=== PATIENT | male | born 1970 ===

== ENCOUNTER 2022-12-27 08:15 | Inpatient (IN) | payer OTHER ==
[~2022-12-27] VITALS: Ht 172.7 cm; Wt 77.1 kg
[~2022-12-27 08:15] MED LIST: CATAFLAN PO; CIPROFLOXACIN750 MG PO; CLONAZEPAM1 MG PO; DOCUSATE SODIU100 MG PO; GABAPENTIN800 MG PO; METHYLPRED4 MG/DOSE- PO; PERCOCET 5/3251 TAB PO
[2022-12-27] MEDS ORDERED: ESTAZOLAM2 MG PO (09:39)
[2022-12-27] MEDS ORDERED: CYMBALTA30 MG PO (09:39)
[2022-12-31] MEDS ORDERED: PERCOCET 5-3251 EACH PO (12:50)
[2022-12-31] MEDS ORDERED: MEDROLPACK PO (12:51)
[2022-12-31] MEDS ORDERED: NEURONTIN800 MG PO (12:52)
[2022-12-31] MEDS ORDERED: AMOX-CLAV 875-1 EACH PO (12:52)
[2022-12-31] MEDS ORDERED: COLACE100 MG PO (12:53)
== END 2023-01-02 08:14 | disposition home health service (06) | DRG 455 ==
LOC: O/R 12-31 06:28 → SURH 12-31 08:15 → PED 12-31 15:39 → SURH 12-31 17:45 → PED 01-02 08:14
PROVIDERS: ADMIT Orthopaedic Surgery Orthopaedic Surgery of the Spine; ATTEND Orthopaedic Surgery Orthopaedic Surgery of the Spine
PROC: 0SG0071 Fusion of Lumbar Vertebral Joint with Autologous Tissue Substitute, Posterior Approach, Posterior Column, Open Approach (ICD-10-PCS; 2022-12-31)
PROC: 0ST20ZZ Resection of Lumbar Vertebral Disc, Open Approach (ICD-10-PCS; 2022-12-31)
PROC: 0QB30ZZ Excision of Left Pelvic Bone, Open Approach (ICD-10-PCS; 2022-12-31)
PROC: 07DR0ZZ Extraction of Iliac Bone Marrow, Open Approach (ICD-10-PCS; 2022-12-31)
PROC: XRGB0R7 Fusion of Lumbar Vertebral Joint using Custom-Made Anatomically Designed Interbody Fusion Device, Open Approach, New Technology Group 7 (ICD-10-PCS; principal; 2022-12-31 17:45)
DX: M48.062 Spinal stenosis, lumbar region with neurogenic claudication (principal); M51.36 Other intervertebral disc degeneration, lumbar region